=== PATIENT | male | born 1975 | race Caucasian/White ===

== ENCOUNTER 2020-11-15 20:05 | Emergency (ER) | payer OTHER ==
[~2020-11-15 20:05] MED LIST: FLEXERIL 10 MG10 MG PO; IBUPROFEN600 MG PO
[2020-11-15] MEDS ORDERED: IBUPROFEN600 MG PO (23:20)
[2020-11-15] MEDS ORDERED: CYCLOBENZAPRINE5 MG PO (23:20)
== END 2020-11-15 23:36 | disposition home or self-care (01) ==
LOC: ER1 20:05
DX: M54.5 Low back pain (principal)
CPT/HCPCS: 72100; 96372; 99283; J1100; J1885